=== PATIENT | female | born 1990 | race African-American/Black ===

== ENCOUNTER 2017-10-20 16:37 | Inpatient (IN) | payer MEDICAID ==
[~2017-10-20] VITALS: Ht 172.7 cm; Wt 78.7 kg
[2017-10-20] MEDS ORDERED: MORPHINE SULFATE 2 MG/1 ML DISP.SYRIN IV ONE (16:45)
[2017-10-20] MEDS ORDERED: MORPHINE SULFATE 2 MG/1 ML DISP.SYRIN ONE ×2 (16:52→17:23)
[2017-10-20] MEDS ORDERED: MORPHINE SULFATE 4 MG/1 ML DISP.SYRIN ONE (17:23)
[2017-10-20] MEDS ORDERED: MORPHINE SULFATE 4 MG/1 ML DISP.SYRIN IV ONE (17:30)
[2017-10-20] MEDS ORDERED: BIRTHCONTROL (18:24)
[2017-10-20 18:36] LABS: BASOPHILS % (AUTO) 0.3 % (0.0-2.0); EOSINOPHILS # (AUTO) 0.2 K/uL (0.0-0.7); EOSINOPHILS % (AUTO) 1.2 % (0.0-7.0); HEMATOCRIT 43.4 % (31.2-41.9); HEMOGLOBIN 14.5 g/dL (10.9-14.3); LYMPHOCYTES # (AUTO) 1.4 K/uL (20.0-40.0); LYMPHOCYTES % (AUTO) 11.1 % (20.5-51.5); MEAN CORPUSCULAR HGB CONC 33 g/dL (32.3-35.6); MEAN CORPUSCULAR VOLUME 95.8 fL (75.5-95.3); MONOCYTES # (AUTO) 0.7 K/uL (2.0-10.0); MONOCYTES % (AUTO) 5.2 % (0.0-11.0); NEUTROPHILS # (AUTO) 10.6 K/uL (1.8-8.9); NEUTROPHILS % (AUTO) 82.2 % (38.5-71.5); PLATELET COUNT (AUTO) 196 K/uL (179-408); RED BLOOD CELL COUNT(AUTO) 4.53 MIL/uL (3.63-4.92); WHITE BLOOD COUNT (AUTO) 12.8 K/uL (3.8-11.8)
[2017-10-20 18:38] LABS: POTASSIUM 3.7 mmol/L (3.5-5.1)
--- NOTE | 2017-10-20 18:42 | NUR ---
Patient is eating dinner tray with good appetite, for admission & transfer to 2nd floor after change of shift
--- NOTE | 2017-10-20 19:04 | NUR ---
SBAR to nurse Preston
[2017-10-20] MEDS ORDERED: MORPHINE SULFATE 4 MG/1 ML DISP.SYRIN IV STA (19:05)
--- NOTE | 2017-10-20 19:06 | NUR ---
REPORT TAKEN FROM IRAM PUENTE. ASSUMING PT CARE AT THIS TIME.
--- NOTE | 2017-10-20 20:12 | NUR ---
Pt. admitted to MED SURG, under care of Dr. CADE Belongs List completed
[2017-10-20 20:20] VITALS: BP 140/74
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
[2017-10-20] MEDS ORDERED: ACETAMINOPHEN 650 MG SUPP.RECT RC PRN (20:30)
[2017-10-20] MEDS ORDERED: MORPHINE SULFATE 2 MG/1 ML DISP.SYRIN IV PRN (20:30)
--- NOTE | 2017-10-20 22:15 | NUR ---
PT SEEN BY DOCTOR Sage WAHL
[2017-10-20] MEDS: MORPHINE SULFATE 4 MG/1 ML DISP.SYRIN IV PRN (22:23)
[2017-10-21] MEDS: ONDANSETRON 4 MG/2 ML VIAL IV PRN (00:56)
[2017-10-21] MEDS: MORPHINE SULFATE 4 MG/1 ML DISP.SYRIN IV PRN ×6 (01:21→23:49)
[2017-10-21 05:46] VITALS: BP 136/84
--- NOTE | 2017-10-21 06:38 | NUR ---
AOX4. PAIN ON RIGHT ARM TOLERABLE AT THIS TIME. RIGHT ARM SLING IN PLACE. ICE COMPRESS PROVIDED TO RIGHT ARM PRN FOR PAIN AND EFFECTIVE. DENIES ANY SOB. IN NO ACUTE DISTRESS. O2 SAT AT 99% ON RA. IV SITE ON LEFT AC INTACT AND PATENT. PT ON NPO STATUS. NEEDS ATTENDED TO AND MET. SAFETY MEASURE MAINTAINED AND CALL TORRES WITHIN REACH. PT BOYFRIENRaza DIAZ ON BESIDE.
[2017-10-21 06:46] LABS: BASOPHILS % (AUTO) 0.7 % (0.0-2.0); EOSINOPHILS # (AUTO) 0.3 K/uL (0.0-0.7); HEMOGLOBIN 12.8 g/dL (10.9-14.3); LYMPHOCYTES # (AUTO) 2.5 K/uL (20.0-40.0); LYMPHOCYTES % (AUTO) 35.8 % (20.5-51.5); MEAN CORPUSCULAR HEMOGLOBIN 32.7 uug (24.7-32.8); MEAN CORPUSCULAR HGB CONC 35 g/dL (32.3-35.6); MEAN CORPUSCULAR VOLUME 94.6 fL (75.5-95.3); MONOCYTES # (AUTO) 0.7 K/uL (2.0-10.0); MONOCYTES % (AUTO) 9.5 % (0.0-11.0); NEUTROPHILS # (AUTO) 3.5 K/uL (1.8-8.9); PLATELET COUNT (AUTO) 192 K/uL (179-408); RED BLOOD CELL COUNT(AUTO) 3.91 MIL/uL (3.63-4.92)
--- NOTE | 2017-10-21 07:30 | NUR ---
Awake, alert, oriented x 4. Right upper extremity immobilized with sling. NPO re instructed. Ortho consult with Dr. Lacy
[2017-10-21 07:33] LABS: BILIRUBIN,TOTAL 0.5 mg/dL (0.2-1.0); CREATININE 0.9 mg/dL (0.6-1.3); MAGNESIUM 1.8 mg/dL (1.8-2.4); PHOSPHOROUS 4.5 mg/dL (2.5-4.9); POTASSIUM 4.1 mmol/L (3.5-5.1); TOTAL PROTEIN, SERUM 6.7 g/dL (6.4-8.2)
[2017-10-21] MEDS: PANTOPRAZOLE SODIUM 40 MG VIAL IV SCH (08:47)
--- NOTE | 2017-10-21 10:00 | NUR ---
Called Dr. Lacy to follow up plans for surgery
[2017-10-21 11:30] VITALS: BP 118/71
--- NOTE | 2017-10-21 12:30 | NUR ---
Placed another call to Dr. Lacy to follow up plans for surgery
[2017-10-21] MEDS: IV NS 1000 ML 1,000 ML IV PRN (12:42)
--- NOTE | 2017-10-21 14:00 | NUR ---
Dr. Lacy seen patient, explained plan of surgery, unable to do today and will do tomorrow. Diet ordered.
--- NOTE | 2017-10-21 15:30 | NUR ---
Consent for ORIF Right Humerus fracture signed by krishan, patient unable to sign due to injury to extremity
[2017-10-21 16:07] VITALS: BP 118/74
--- NOTE | 2017-10-21 18:40 | NUR ---
Complaining of pain, Morphine IV given as ordered. RUE elevated over pillow
--- NOTE | 2017-10-21 19:20 | NUR ---
Received pt in bed. Family/friends on bedside. AAOX4. Pt complained of mild pain on her neck area, provided ice compress per pt request. In no acute distress. O2 sat at 97% on RA. IV site on left AC intact and patent. IVF infusing. Sling on right arm in place. Stated pain is mild and tolerable on right arm at this time. Safety measure initiated and call baez within reached.
[2017-10-21 20:19] VITALS: BP 121/72
--- NOTE | 2017-10-21 21:10 | NUR ---
Obtained UA specimen and sent to lab.
[2017-10-22] MEDS: IV NS 1000 ML 1,000 ML IV PRN (02:52)
[2017-10-22] MEDS: MORPHINE SULFATE 4 MG/1 ML DISP.SYRIN IV PRN ×3 (03:20→23:43)
[2017-10-22 04:40] VITALS: BP 120/75
--- NOTE | 2017-10-22 06:06 | NUR ---
AOx4. In no acute distress. O2 sat at 96% on RA. IV site on left AC intact and patent. IVF infusing. Right arm sling in place and kept immobilized. NPO after midnight. Safety measure maintained and call baez within reach.
[2017-10-22 06:54] LABS: BASOPHILS # (AUTO) 0.1 K/uL (0.0-8.0); BASOPHILS % (AUTO) 0.7 % (0.0-2.0); EOSINOPHILS # (AUTO) 0.6 K/uL (0.0-0.7); EOSINOPHILS % (AUTO) 8.8 % (0.0-7.0); HEMATOCRIT 35.8 % (31.2-41.9); HEMOGLOBIN 12.3 g/dL (10.9-14.3); LYMPHOCYTES # (AUTO) 2.7 K/uL (20.0-40.0); LYMPHOCYTES % (AUTO) 38.8 % (20.5-51.5); MEAN CORPUSCULAR HEMOGLOBIN 32.7 uug (24.7-32.8); MEAN CORPUSCULAR HGB CONC 34 g/dL (32.3-35.6); MEAN CORPUSCULAR VOLUME 94.8 fL (75.5-95.3); MONOCYTES # (AUTO) 0.6 K/uL (2.0-10.0); MONOCYTES % (AUTO) 8.3 % (0.0-11.0); NEUTROPHILS # (AUTO) 3.1 K/uL (1.8-8.9); NEUTROPHILS % (AUTO) 43.4 % (38.5-71.5); PLATELET COUNT (AUTO) 179 K/uL (179-408); RED BLOOD CELL COUNT(AUTO) 3.78 MIL/uL (3.63-4.92)
--- NOTE | 2017-10-22 07:00 | NUR ---
RECEIVED REPORT FROM CONTACT WORKER. PATIENT ON BED AWAKE, NO ACUTE DISTRESS NOTED. SLING INTACT ON THE RIGHT ARM TO IMMOBILIZE HUMERUS FX, PATIENT NPO S/P MIDNIGHT. FOR ORIF OF THE RIGHT HUMERUS TODAY AT 0900. COMFORT MEASURES PROVIDED. WILL CONTINUE TO MONITOR CLOSELY.
[2017-10-22 07:09] LABS: BILIRUBIN,TOTAL 0.5 mg/dL (0.2-1.0); CREATININE 0.9 mg/dL (0.6-1.3); MAGNESIUM 1.6 mg/dL (1.8-2.4); PHOSPHOROUS 3.8 mg/dL (2.5-4.9); POTASSIUM 4.1 mmol/L (3.5-5.1); TOTAL PROTEIN, SERUM 6.8 g/dL (6.4-8.2)
[2017-10-22] MEDS ORDERED: POLYMYXIN B SULFATE 500,000 UNITS, BACITRACIN 50,000 UNITS, NORMAL SALINE 20 ML MC ONE ×3 (08:15)
[2017-10-22] MEDS: PANTOPRAZOLE SODIUM 40 MG VIAL IV SCH (09:00)
--- NOTE | 2017-10-22 09:00 | NUR ---
PATIENT TAKEN DOWN TO OR ROOM VIA BED ACCOMPANIED BY 2 OR NURSES FOR ORIF OF THE RIGHT HUMERUS. CONSENT SIGNED. PRE OP CHECKLIST DONE.
[2017-10-22] MEDS ORDERED: MIDAZOLAM HCL 2 MG/2 ML VIAL ONE (09:18)
[2017-10-22] MEDS ORDERED: VANCOMYCIN 1000 MG VIAL ONE (11:16)
[2017-10-22] MEDS ORDERED: BUPIVACAINE PF 0.5% 30 ML VIAL ONE (11:18)
[2017-10-22] MEDS ORDERED: IV D5W-0.45% NS +20 KCL 1,000 ML IV ONE (12:14)
[2017-10-22] MEDS ORDERED: MORPHINE SULFATE 2 MG/1 ML DISP.SYRIN IV PRN (12:30)
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
[2017-10-22 13:15] VITALS: BP 116/71
[2017-10-22] MEDS: POTASSIUM CHLORIDE 20 MEQ in IV D5 1/2 NS 1000 ML 1,000 ML IV PRN (13:27)
[2017-10-22] MEDS: MAGNESIUM SULFATE/D5W 100 ML IV SCH ×2 (14:03→15:44)
[2017-10-22 15:30] VITALS: BP 121/73
[2017-10-22] MEDS ORDERED: PROPOFOL 200 MG/20 ML BOTTLE IV ONE (15:33)
[2017-10-22] MEDS ORDERED: CEFAZOLIN 1 G VIAL MC ONE (15:33)
[2017-10-22] MEDS ORDERED: KETOROLAC TROMETHAMINE 30 MG INJ IM ONE (15:33)
[2017-10-22] MEDS ORDERED: ONDANSETRON 4 MG/2 ML VIAL IV ONE (15:33)
[2017-10-22] MEDS: CEFAZOLIN 1 G in PREMIXED 1 EACH IV SCH (17:04)
[2017-10-22] MEDS: HYDROCODONE/APAP 10-325 MG TABLET PO PRN ×2 (17:05→20:43)
--- NOTE | 2017-10-22 18:44 | NUR ---
PATIENT IN BED, AWAKE, NO ACUTE DISTRESS NOTED. S/P ORIF OF THE RIGHT DISTAL HUMERUS, RIGHT ARM IMMOBILIZED WITH SLING, SURGICAL DRESSINGS INTACT. ICE PACKS APPLIED ON THE RIGHT UPPER ARM AND RIGHT HAND. IV ACCESS ON THE LEFT AC # 20 INTACT AND PATENT, IVF INFUSING WELL. NO COMPLAINTS OF PAIN AND DISCOMFORT AT THIS TIME. ALL NEEDS ATTENDED AND ANTICIPATED. CALL LIGHT WITHIN REACH AND ANSWERED IN A TIMELY MANNER. WILL ENDORSE ACCORDINGLY
[2017-10-22 20:53] VITALS: BP 105/71
[2017-10-22] MEDS: ACETAMINOPHEN 325 MG TABLET PO PRN (23:59)
[2017-10-23] MEDS: POTASSIUM CHLORIDE 20 MEQ in IV D5 1/2 NS 1000 ML 1,000 ML IV PRN ×2 (01:28→16:04)
[2017-10-23] MEDS: CEFAZOLIN 1 G in PREMIXED 1 EACH IV SCH (01:29)
[2017-10-23] MEDS: MORPHINE SULFATE 4 MG/1 ML DISP.SYRIN IV PRN ×10 (01:37→20:25)
[2017-10-23 05:09] VITALS: BP 121/79
--- NOTE | 2017-10-23 06:30 | NUR ---
PT WAS UNABLE TO SLEEP DURING THE NIGHT SINCE PT WAS IN PAIN, PT COMPLAINED OF SEVER ARM PAIN THAT MCCLAIN AND TINGLES DURING THE NIGHT, PT WAS GIVEN MEDICATION , WAS EFFECTIVE BUT WOULD NOT LAST MORE THEN 1.5HRS. PT'S ARM WAS ALSO SLIGHTLY SWOLLEN, NO CHANGES TO SWELLING NOTED COMPARED TO START OF SHIFT, CAP REFILL IS LESS THEN 3SEC. ALL NEEDS MET, SAFETY MEASURES ARE IN PLACE, CALL LIGHT WITHIN REACH, BED ALARM IS ON. - LAST DOSE OF MORPHINE WAS GIVEN AT 0600 NOT 0630, ACCIDENTALLY DID NOT SAVE THE 0600 DOSE.
[2017-10-23 07:47] LABS: CREATININE 0.8 mg/dL (0.6-1.3); MAGNESIUM 1.8 mg/dL (1.8-2.4); POTASSIUM 4.4 mmol/L (3.5-5.1)
[2017-10-23 08:00] VITALS: BP 124/82
--- NOTE | 2017-10-23 08:00 | NUR ---
Rec'd pt in bed awake. A&Ox4. c/o right arm 8/10 pain. Will administer Morphine as ordered. Right arm sling in place. Pt able to move fingers. Right radial pulse palpable. Right arm swelling still noted, elevated with pillows as tolerated. Will continue to monitor
[2017-10-23] MEDS: PANTOPRAZOLE SODIUM 40 MG VIAL IV SCH (08:15)
[2017-10-23 11:42] VITALS: BP 122/80
[2017-10-23 15:16] VITALS: BP 129/88
--- NOTE | 2017-10-23 16:30 | NUR ---
Pt complained that the right arm splint feels as if it is cutting into her arm causing her more pain. Relayed to Dr. Lacy with new order to D/C right arm splint, cover incision site with 4x4 dressing, and wrap with alison wrap. Pt made aware. Pt agreed.
--- NOTE | 2017-10-23 17:00 | NUR ---
Pt tolerated removal of right arm splint well. denies pain at this time. Right arm incision site noted with several steristrips, no bleeding noted. covered with 4x4 as instructed and wrapped with alison wrap. Placed arm back in sling. Will continue to monitor.
[2017-10-23] MEDS: ONDANSETRON 4 MG/2 ML VIAL IV PRN (17:32)
--- NOTE | 2017-10-23 18:15 | NUR ---
Spoke with SARITHA Hill and relayed pt requesting to receive her morphine 2mg IV now, which is 30 mins early prior to due dose. Per SARITHA Hill ok to give now.
[2017-10-23] MEDS: DOCUSATE SODIUM 100 MG CAPSULE PO PRN (18:17)
--- NOTE | 2017-10-23 19:20 | NUR ---
RECEIVED PT AWAKE, ALERT, ORIENTEDX4. VISITOR AT BEDSIDE. PT WAITING FOR HER NORCO. SHE STATED SHE'S IN PAIN. IV INTACT AND PATENT. CALL LIGHT WITHIN REACH. BED ALARM ON AND IN LOW POSITION. WILL CONTINUE TO MONITOR.
[2017-10-23] MEDS: ACETAMINOPHEN 325 MG TABLET PO PRN (19:53)
[2017-10-23 20:19] VITALS: BP 129/74
[2017-10-23] MEDS: HYDROCODONE/APAP 10-325 MG TABLET PO PRN (22:05)
[2017-10-24] MEDS: MORPHINE SULFATE 4 MG/1 ML DISP.SYRIN IV PRN ×5 (00:36→16:07)
[2017-10-24 04:26] VITALS: BP 114/67
[2017-10-24] MEDS: HYDROCODONE/APAP 10-325 MG TABLET PO PRN (05:58)
[2017-10-24] MEDS: PANTOPRAZOLE SODIUM 40 MG TABLET.DR PO SCH (06:03)
--- NOTE | 2017-10-24 06:18 | NUR ---
END OF NOTE: PT VITAL SIGNS STABLE AND WITHIN NORMAL LIMIT. PAIN MANAGEMENT DONE.PRESCRIBED MEDICATION GIVEN . PT TOLERATED IT WELL.IV INTACT AND PATENT. CALL LIGHT WITHIN REACH. BED ALARM ON AND IN LOW POSITION.SAFETY AND COMFORT PROVIDED.WILL ENDORSE TO DAYSHIFT NURSE.
--- NOTE | 2017-10-24 07:25 | NUR ---
Received report from manufacturing shift supervisor nurse, patient in bed asleep, no distress noted at this time. Pulse strong on right hand, edema noted. Ice pack and sling in place. Currently no evidence of distress noted, bed in low position, side rails up x2.
[2017-10-24 11:43] VITALS: BP 104/73
[2017-10-24 15:20] VITALS: BP 132/88
[2017-10-24] MEDS ORDERED: OXYC-133 PO (15:44)
--- NOTE | 2017-10-24 19:10 | NUR ---
PT TO BE DISCHARGED ENDORSE BY DAYSHIFT NURSE. PT ALERT AND AWAKE, ORIENTEDX4. PT SAID SHE'S IN PAIN. IV INTACT AND PATENT. ASK DOCTOR FOR LAXATIVE BUT DISCHARGED WERE ALL DONE SO ADVISED THE PT TO TAKE PRUNE JUICE AND TO EAT HIGH FIBER DIET FOR CONSTIPATION. PT UNDERSTAND.
--- NOTE | 2017-10-24 19:42 | NUR ---
Patient has continued pain in right arm, but does not keep the arm elevated. Patient is currently in bed, bed in low position, side rails up x2. Patient is being discharged tonight.
--- NOTE | 2017-10-24 21:30 | NUR ---
PT AMBULATORY AND LEFT WITH PRIVATE CAR. PROTOCOL FOLLOWED. PT GIVEN ANOTHER ARM SLING. PT STABLE. PT SHOWS NO SIGNS OF DISTRESS. SAFETY AND COMFORT PROVIDED. ALL NEEDS ARE MET.EDUCATION PROVIDED.PT VERBALIZED UNDERSTANDING. IV WAS DISCONTINUED AND TAKEN OUT. ID BAND TAKEN OFF.. ALL BELONGINGS ACCOUNTED FOR AND SET WITH PT.
--- NOTE | 2017-10-24 23:15 | NUR ---
DISCHARGE CANCELLED PT WENT BACK [id number]. PT IN STABLE CONDITION.CALL LIGHT WITHIN REACH. BED ALARM ON AND IN LOW POSITION.WILL CONTINUE TO MONITOR.
[2017-10-25] MEDS ORDERED: MAGNESIUM HYDROXIDE 30 ML LIQUID UDC PO PRN ×2 (00:15→08:00)
[2017-10-25] MEDS ORDERED: HYDROCODONE/APAP 10-325 MG TABLET ONE ×2 (00:39→05:38)
[2017-10-25] MEDS ORDERED: DOCUSATE SODIUM 100 MG CAPSULE PO ONE (00:40)
[2017-10-25] MEDS: HYDROCODONE/APAP 10-325 MG TABLET PO PRN ×4 (01:23→15:27)
[2017-10-25] MEDS: DOCUSATE SODIUM 100 MG CAPSULE PO PRN (01:23)
[2017-10-25] MEDS ORDERED: PANTOPRAZOLE SODIUM 40 MG TABLET.DR PO ONE (05:41)
[2017-10-25] MEDS: PANTOPRAZOLE SODIUM 40 MG TABLET.DR PO SCH (06:09)
[2017-10-25 06:14] VITALS: BP 125/65
--- NOTE | 2017-10-25 06:15 | NUR ---
PT SLEPT THROUGHOUT THE SHIFT. PT SHOWS NO SIGNS OF DISTRESS PT STABLE. PAIN MEDICATION MANAGEMENT DONE. GIVEN PAIN MEDICATION. ELEVATE THE RIGHT ARM AND PUT ICE ON IT. GAVE PT RUNE JUICE. PT SAID ITS EFFECTIVE. CALL LIGHT WITHIN REACH. BED ALARM ON AND SIDE RAILS UP. SAFETY AND COMFORT PROVIDED.WILL ENDORSE TO DAYSHIFT NURSE.
--- NOTE | 2017-10-25 07:45 | NUR ---
SLEEPING OFF AND ON STATED WANTED TO SLLEP A LITTLE BIT MORE COS SHE IS VERY TIRED ON ROOM AIR WITH NO SHORTNESS OF BREATH AT THIS TIME.LEFT ARM WITH BULKY DRESSING INTACT WITH ADEQUATE CIRCULATION AT THIS TIME MADE COMFORTABLE AND WILL CONTINUE TO OBSERVE.
[2017-10-25] MEDS ORDERED: ACETAMINOPHEN 325 MG TABLET PO PRN (08:00)
[2017-10-25] MEDS ORDERED: DOCUSATE SODIUM 100 MG CAPSULE PO PRN (08:00)
[2017-10-25] MEDS ORDERED: ACETAMINOPHEN 650 MG SUPP.RECT RC PRN (08:00)
[2017-10-25] MEDS ORDERED: ONDANSETRON 4 MG/2 ML VIAL IV PRN (08:00)
[2017-10-25] MEDS ORDERED: MORPHINE SULFATE 4 MG/1 ML DISP.SYRIN IV PRN (08:00)
--- NOTE | 2017-10-25 11:04 | NUR ---
PATIENT SEEN AND EXAMINED BY DR BRIANNE AYALA AND HE STATED THAT HE CALLED THE PATIENTS PHARMACY AND THAT THEY DO HAVE PERCOCET PATIENT AWARE AND STATED THAT SHE HAS CALLED HER COUSIN AND SHE WILL COME AND GET HER PRESCRIPTION GO AND GET IT FILLED UP FIRST AND THEN PATIENT WILL BE DISCHARGE AFTER THE MEDICATION IS IN HER POSSESSION.RIGHT ARM WITH MAISHA WRAP INTACT WITH SWELLING ELEVATED ON THE PILLOW WITH ADEQUATE CIRCULATION AT THIS TIME.
[2017-10-25 11:20] VITALS: BP 105/78
--- NOTE | 2017-10-25 14:30 | NUR ---
[facility] AT [place] WAS CALLED BY THE TICKET AGENT AND CONFIRMED WITH EVELYN THAT THEY DO HAVE PERCOCET IN STOCK AND WILL FILL THE PRESCRIPTION FOR THE PATIENT TODAY PATIENT AWARE. UNABLE TO LOCATE PATIENTS PRIOR PROPERTY MANAGEMENT FORM PATIENT STATED THAT SHE HAS ALL OF HER PERSONAL BELONGINGS WITH A NEW SIGNATURE AND SHE ALSO RESIGNED THE DISCHARGE PAPERS FROM YESTERDAY AND PATIENT WAS INSTRUCTED TO CALL DR KENT OFFICE FOR A FOLLOW UP APPOINTMENT WITHIN THE NEXT WEEK.ALSO SHE WAS INSTRUCTED TO KEEP SLING ON IN PLACE ON HER RIGHT ARM AND KEEP RIGHT ARM ELEVATED AT ALL TIMES TO REDUCE SWELLING AND SHE EXPRESSED UNDERSTANDING.
[2017-10-25 15:23] VITALS: BP 101/59
--- NOTE | 2017-10-25 16:04 | NUR ---
PATIENT DISCHARGED ASSISTED TO THE CAR PICKED UP BY HER COUSIN IN SATISFACTORY CONDITION WITH DISCHARGE INSTRUCTIONS AND PRESCRIPTION AND PATIENT ON ROUTE TO [facility] TO HEEL VARNISHER HER MEDICATION.
[2017-10-26] MEDS ORDERED: PANTOPRAZOLE SODIUM 40 MG TABLET.DR PO SCH (07:00)
== END 2017-10-25 15:50 | disposition home or self-care (01) | DRG 315 ==
LOC: ER 16:37 → MED 17:59 → OBSVTOIN 17:59 → MED 18:56 → INTOOBSV 18:56 → UNDOADMOB 18:56 → UNDODISOB 10-24 21:30 → MED 10-24 21:30 → OBSVTOIN 10-24 21:30 → INTOOBSV 10-24 21:30 → UNDOADMOB 10-24 21:30 → UNDODISOB 10-25 15:50
PROVIDERS: ADMIT Internal Medicine; ATTEND Internal Medicine
PROC: 0PSF04Z Reposition Right Humeral Shaft with Internal Fixation Device, Open Approach (ICD-10-PCS; principal; 2017-10-22 09:30)
DX: S42.491A Other displaced fracture of lower end of right humerus, initial encounter for closed fracture (principal); D72.828 Other elevated white blood cell count; T14.8XXA Other injury of unspecified body region, initial encounter; T79.6XXA Traumatic ischemia of muscle, initial encounter; V49.88XA Car occupant (driver) (passenger) injured in other specified transport accidents, initial encounter; W22.10XA Striking against or struck by unspecified automobile airbag, initial encounter; Y92.410 Unspecified street and highway as the place of occurrence of the external cause; R20.0 Anesthesia of skin
CPT/HCPCS: 36415; 71045; 73060; 73070; 76000; 83735; 84100; 84703; 85025; 85730; 86850; 86900; 86901; 93005; A4663; C9113; G0378; J0690; J1885; J2250; J2270; J2405; J3370; J3475; J3480; J3490; J7030